=== PATIENT | male | born 1950 | race Caucasian/White ===

== ENCOUNTER 2017-12-30 09:55 | Inpatient (IN) ==
[~2017-12-30 09:55] MED LIST: Vancomycin 1,000 MG, Sodium Chloride IRRigation 1,000 ML IR ONE
[2017-12-30] MEDS ORDERED: Albuterol 2.5 MG/3 ML NEBULIZER IH ONE ×2 (10:24→16:43)
[2017-12-30] MEDS ORDERED: Lidocaine -MPF 1% 2 ML VIAL ID ONE (10:24)
[2017-12-30] MEDS ORDERED: CeFAZolin Syr 2,000MG/20 ML 2,000 MG/20 ML SYRINGE IVPB ONE (10:24)
[2017-12-30] MEDS ORDERED: 0.9 % Sodium Chloride 1,000 ML IVC SCH ×2 (10:30→17:27)
[2017-12-30] MEDS ORDERED: *HR* FentaNYL (PF) 100 MCG/2 ML VIAL ONE (10:50)
[2017-12-30] MEDS ORDERED: *HR* Propofol 200 MG/20 ML VIAL IVP ONE (10:50)
[2017-12-30] MEDS ORDERED: *HR* Midazolam HCl 2 MG/2 ML VIAL ONE (10:50)
[2017-12-30] MEDS ORDERED: Lidocaine -MPF 2% 2 ML VIAL ONE ×2 (10:52→11:18)
[2017-12-30] MEDS ORDERED: *HR* Rocuronium Bromide 50 MG/5 ML VIAL ONE (10:52)
--- NOTE | 2017-12-30 11:11 | Anesthesia Evaluation PreOp ---
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 History: TIA, Other (has bilateral LE contractures) Other Medical History: Hepatic (Cirrhosis due to ETOH abuse, patient denies any of this), Renal (stage 3 CKD), GERD, Other (Neuromuscular) Anesthesia History: No Prior Anesthetic Complications, Past Anesthesia (right leg stent, T&A,) Alcohol Use: none Drug use: none Medications and Allergies 3 Allergy/AdvReac Type Severity Reaction Status Date / Time No Known Allergies Allergy Verified 12/30/17 10:20 - Meds/Allergy Pre-op Review Medications Reviewed: Yes Allergies Reviewed: Yes Beta Blockers on Current Med List: No Anesthesia Results - Labs Laboratory Tests 12/28/17 12/28/17 12/28/17 12:45 12:45 12:45 Hgb 10.4 L Hct 32.5 L Plt Count 273 PT 11.0 INR 1.0 APTT 32.1 Sodium 133 L Potassium 4.9 BUN 37 H Creatinine 1.54 H Anesthesia Exam Selected Entries 12/30/17 10:30 Temperature 98.5 F Pulse Rate 63 Respiratory Rate 18 Blood Pressure 99/55 O2 Sat by Pulse Oximetry 95 - HEENT Pupil (Motor): EOMI Mallampati: III Teeth: Missing, Poor dentition Oral Opening: Greater than 3 - PROOF MACHINE OPERATOR SUPERVISOR LOC: Oriented 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
[2017-12-30] MEDS ORDERED: *HR* Phenylephrine 10 MG/ML VIAL ONE (11:22)
[2017-12-30] MEDS ORDERED: Heparin 1,000 UNITS/500 mL 500 ML ONE ×2 (12:35→12:53)
[2017-12-30] MEDS ORDERED: Heparin 1,000 UNITS/500 mL 1,000 ML ONE (12:37)
[2017-12-30] MEDS ORDERED: *HR* Remifentanil 2 MG VIAL IVP ONE (12:44)
--- NOTE | 2017-12-30 12:56 | History & Physical Report ---
Date of Encounter: 12/30/17 Time of Encounter: 12:30 24 Hour HP Update - Instructions Instructions: If the History and Physical is less than 30 days old and was completed prior to A.M. admission and or procedure and has NOT been updated on calendar day of procedure please complete this update prior to performing procedure. - Update Patient reports changes in Medical Condition: No Changes in examination, assessment, or condition: No Changes in Medication: No Preop tests/diagnostics Reviewed: Yes Surgery Remains Indicated: Yes Consent for Planned Operative Procedure(s) Verified: Yes - Pre-Operative Checklist Preoperative Checklist Indicated: Yes Prophylactic Antibiotic Ordered: Yes (Vancomycin due to risk of MRSA) Home Medications Include Beta Sammie: Yes Beta Sammie Taken Today (Day of Surgery): Yes Beta Sammie Taken Yesterday (Day Prior to Surgery): Yes Is VTE Prophylaxis Indicated?: Yes
[2017-12-30] MEDS ORDERED: EPHEDrine 50 MG/ML VIAL ONE (14:36)
[2017-12-30] MEDS ORDERED: Dexamethasone 4 MG/ML VIAL ONE (14:41)
[2017-12-30] MEDS ORDERED: Ondansetron 4 MG/2 ML VIAL ONE (14:41)
[2017-12-30] MEDS ORDERED: *HR* Heparin 5,000 UNIT/ML VIAL ONE (15:32)
[2017-12-30] MEDS ORDERED: Neostigmine Methylsulfate 3 MG/3 ML SYRINGE ONE (15:55)
[2017-12-30] MEDS ORDERED: Naloxone 0.4 MG/ML INJ IVP PRN ×2 (16:43→17:27)
[2017-12-30] MEDS ORDERED: *HR* Labetalol 20 MG/4 ML SYRINGE IVP PRN ×2 (16:43→17:27)
[2017-12-30] MEDS ORDERED: *HR* Meperidine 25 MG/ML SYRINGE IVP PRN (16:43)
[2017-12-30] MEDS ORDERED: MORPHINE SUL Oral CONC 10 MG/0.5 ML ORAL.SYG SL PRN (16:43)
[2017-12-30] MEDS ORDERED: *HR* Promethazine 25 MG/ML VIAL IVP PRN (16:43)
[2017-12-30] MEDS ORDERED: Ondansetron 4 MG/2 ML VIAL IVP ONE (16:43)
[2017-12-30] MEDS ORDERED: *HR* OxyCODONE Immed Rel 5 MG TABLET PO PRN ×2 (16:43→17:27)
[2017-12-30] MEDS ORDERED: 0.9 % Sodium Chloride 500 ML IVC SCH (16:45)
--- NOTE | 2017-12-30 16:47 | Operative Note ---
Date of procedure: 12/30/17 Pre-op diagnosis: Peripheral vascular diease with ulceration Post-op diagnosis: same Procedure: 1. Right common and deep femoral artery endartectomy. 2. Left common and deep femoral artery endarterectomy. 3. Right common femoral to left common femoral artery bypass with 6mm ring reinforced PTFE graft. Complications: None Anesthesia: GETA Surgeon: Ananth Flores Was there an assistant at surgery present: No Estimated blood loss (cc): 100 Specimen: Bilateral femoral plaque Condition: stable Disposition: PACU Procedure in Detail: Indications: The patient is a 67 year old male with a history of peripheral vascular disease with ulceration. he was found to have significant femoral artery disease and a left iliac artery occlusion. Revascularization was recommended for symptomatic relief and to reduce his risk of limb loss. Procedure: The patient was identified in the preoperative area. The risks, benefits, and alternatives of the procedure were discussed. All questions were answered. The patient was taken to the operating room and placed in supine position on the operating room table. After the induction of general endotracheal anesthesia, he was cleaned and draped in normal sterile fashion. An oblique incision was made over the right groin sharply. Hemostasis was obtained with electrocautery. Through a process of blunt, sharp, and electrocautery dissection, the right femoral vessels were dissected circumferentially and surrounded with vessel loops. An oblique incision was then made over the left groin sharply. Hemostasis was obtained with electrocautery. Through a process of blunt, sharp, and electrocautery dissection, the left femoral vessels were dissected circumferentially and surrounded with vessel loops. A graft was tunneled between the right and left femoral incisions. The patient received 5000 units of heparin intravenously. An arteriotomy was then made in the right common femoral artery. A large, partially occlusive plaque was noted to be present in the common femoral artery and extending into the deep femoral artery. Release of the distal vessel loop revealed minimal retrograde flow from the profunda femoris artery. Using a dental freer a right common and deep femoral endarterectomy was performed. Endpoints were inspected and no elevated flaps were noted. The deep femoral artery was noted to have significant retrograde flow after the endarterectomy. The graft was then cut to fit the arterial defect. The graft was sutured in place to the artery with a running 6-0 Prolene. The vessels were flushed through the graft. Heparinized saline was infused into the graft lumen. The graft was clamped with an atraumatic clamp. Flow was restored in the right femoral vessels. Tension was applied to the left femoral artery vessel loops. An arteriotomy was made in the left common femoral artery and the vessel was noted to be occluded with thrombus and significant atherosclerotic plaque extending from the common and into the dep femoral artery. Using a dental freer a left common and deep femoral localized thrombectomy and endarterectomy were performed. Endpoints were inspected and no elevated flaps were noted. The deep femoral artery was noted to have significant retrograde flow after the endarterectomy. The distal end of the graft was cut to fit the arterial defect. The graft was anastamosed with a running 6-0 Prolene. Prior to completing the anastamosis, the left femoral vessels were flushed through the graft anastamosis and heparin was infused into the lumen. The anastamosis was completed and flow was restored in the left lower extremity. Thrombin and gelfoam were used at the proximal anastamosis. Release of the deep femoral vessel loop revealed no retrograde flow from the profunda femoris artery. Polyphasic signals were noted distal to the anastamoses. The wounds were irrigated with antibiotic-containing saline. Platelet rich and platelet poor plasma were infused into the wounds. Meticulous hemostasis was obtained throughout the wound with electrocautery. Wounds were reapproximated with layers of 2-0 and 3-0 Vicryl. Skin was reapproximated with 3-0 Monocryl. Sterile dressing was applied. The patient was extubated and taken to recovery room in stable condition.
--- NOTE | 2017-12-30 17:23 | Anesthesia Evaluation Post Op ---
Date of Encounter: 12/30/17 Time of Encounter: 17:23 - Vital Signs Vital Signs: Last Vital Signs Temp 98.3 F 12/30/17 17:00 Pulse 94 12/30/17 17:10 Resp 14 12/30/17 17:10 BP 122/69 12/30/17 17:10 Pulse Ox 98 12/30/17 17:10 - Lungs Lungs: Clear Ascult./Percussion - Airway Airway: Non-obstructed - Cardiovascular Regular Rate - Mental Status Mental Status: Alert & Oriented, Answers Appropriately - Pain Pain Scale: 4 - Nausea Vomiting Nausea Vomiting: Responds to treatment with IV Meds - Hydration Hydration: NPO - Discharge PostOp Status: Transfer Patient to floor
[2017-12-30] MEDS ORDERED: Ondansetron 4 MG/2 ML VIAL IVP PRN (17:27)
[2017-12-30] MEDS ORDERED: Acetaminophen 325 MG TABLET PO PRN (17:27)
[2017-12-30] MEDS ORDERED: Maalox Oral Soln 30 mL PO PRN (17:27)
[2017-12-30] MEDS ORDERED: *HR* HYDROcodone/Acet 5/325 mg TABLET PO PRN (17:27)
[2017-12-30] MEDS ORDERED: OXYCODONE Oral CONC 10 MG/0.5 ML ORAL.SYG SL PRN ×2 (17:27)
[2017-12-30] MEDS: *HR* Metoprolol 5 MG/5 ML VIAL IVP SCH ×2 (19:22→23:07)
[2017-12-30] MEDS: Budesonide/Formoterol 80/4.5 MDI IH SCH (19:55)
[2017-12-30] MEDS: Lactulose Oral Soln 20 GM/30 ML UDC PO SCH (20:11)
[2017-12-30] MEDS: Lactobacillus 1 EACH CAP.SPRINK PO SCH (20:11)
[2017-12-30] MEDS: Furosemide 20 MG TABLET PO SCH (20:11)
[2017-12-30] MEDS: Nystatin POWDER 30 GM BOTTLE TP SCH (20:12)
[2017-12-30] MEDS: CeFAZolin Premix DUPLEX 2,000 MG/50 ML BAG IVPB SCH (20:12)
[2017-12-30] MEDS ORDERED: Mirtazapine 15 MG TABLET PO SCH (21:00)
[2017-12-31 04:09] LABS: Basophils % 0.2 %; Eosinophils % 0.2 %; Hematocrit 28.2 % (37.5-50.1); Immature Granulocytes % 0.5 % (0-4); Lymphocytes # 0.6 K/mcL (0.6-4.6); Lymphocytes % 8.5 %; Mean Corpuscular HGB Conc 31.9 g/dL (31.6-35.5); Mean Corpuscular Hemoglobin 29.6 pg (28.0-33.3); Mean Corpuscular Volume 92.8 fL (83.0-100.0); Mean Platelet Volume 9.8 fL (9.4-12.4); Monocytes # 0.3 K/mcL (0.0-1.3); Neutrophils # 5.5 K/mcL (1.6-8.9); Nucleated Red Blood Cells 0.3 /100 WBC (0); Platelet Count 270 K/mcL (140-400); Red Blood Count 3.04 M/mcL (4.19-5.50); Red Cell Distribution Width 13.1 % (11.5-14.5); Segmented Neutrophils % 85.6 %
[2017-12-31 04:16] LABS: Potassium 5.9 mEq/L (3.5-5.1)
[2017-12-31] MEDS: CeFAZolin Premix DUPLEX 2,000 MG/50 ML BAG IVPB SCH (04:28)
[2017-12-31] MEDS ORDERED: *HR* Heparin 5,000 UNIT/ML VIAL SQ SCH ×2 (06:00)
[2017-12-31] MEDS: *HR* Metoprolol 5 MG/5 ML VIAL IVP SCH (06:28)
--- NOTE | 2017-12-31 07:40 | Discharge Summary ---
Orders not resulted at time of discharge: Pending orders 12/28/17 13:17 Red Blood Cells [BBK] Routine 12/30/17 16:35 Surgical Pathology [PTH] Routine Date of Encounter: 12/31/17 Time of Encounter: 07:55 - Discharge Diagnosis (1) Atherosclerosis of [place] arteries of left leg with ulceration of other part of foot Priority: Primary Status: Chronic Comments: The patient is postoperative day #1 after a femoral to femoral artery bypass. His incisions are healing well. His foot is warm and his compartments are soft. He has pedal signals present. He will be discharged today. (2) Essential hypertension Priority: Secondary Status: Chronic (3) Alcoholic cirrhosis of liver without ascites Priority: Secondary Status: Chronic (4) Chronic kidney disease, stage 3 Priority: Secondary Status: Chronic Comments: Stable GFR with adequate urine output. (5) Tobacco abuse Priority: Secondary Status: Chronic (6) Chronic disease anemia Priority: Secondary Status: Chronic Comments: The patient has chronic disease anemia with acute expected postoperative blood loss anemia. He is hemodynamically stable without evidence of ongoing blood loss. - Hospital Course Hospital course: Mr. Herrera is a 67 year old male who was admitted on 12/30/17. He underwent a femoral endarterectomy and a FEM-FEM bypass. He tolerated the procedure well and was discharged to home on postoperative day #1 without complications. Time spent discussing smoking cessation with patient: 3 to 10 minutes - Time Spent with Patient Total time spent providing and/or coordinating discharge services: - Discharge Medications Home Medications: Ascorbic Acid [Vitamin C] 500 mg PO DAILY 12/30/17 [History] Aspirin [Lo-Dose Aspirin EC] 81 mg PO DAILY 12/30/17 [History] Ferrous Sulfate [Iron] 325 mg PO BID 12/30/17 [History] Fluticasone/Salmeterol [Advair 250-50 Diskus] 1 tab IH BID 12/30/17 [History] Furosemide [Lasix] 20 mg PO BID 12/30/17 [History] HYDROcodone/Acet 5/325 mg [[place] 5-325 mg] 1 tab PO Q4H PRN 12/30/17 [History] L.acidoph,Paracasei, B.lactis [Probiotic] 1 cap PO BID 12/30/17 [History] Lactulose 10 gm PO BID 12/30/17 [History] Lisinopril [Zestril] 10 mg PO DAILY 12/30/17 [History] Mag Hydrox/Al Hydrox/Simeth [Maalox] 30 ml PO Q6HR PRN 12/30/17 [History] Metoprolol [Lopressor] 12.5 mg PO BID 12/30/17 [History] Mirtazapine [Remeron] 15 mg PO HS 12/30/17 [History] Nystatin POWDER [Nystop] 1 appl TP BID 12/30/17 [History] Omeprazole [PriLOSEC] 20 mg PO DAILY 12/30/17 [History] Ondansetron HCl [Zofran] 4 mg PO Q6H PRN 12/30/17 [History] Potassium Chloride [K-Tab ER] 20 meq PO BID 12/30/17 [History] Sulfamethoxazole/Trimeth DS [Bactrim Ds] 1 each PO BID 12/30/17 [History] Zinc Sulfate 50 mg PO DAILY 12/30/17 [History] Allergies/Adverse Reactions: 3 Allergy/AdvReac Type Severity Reaction Status Date / Time No Known Allergies Allergy Verified 12/30/17 12:12 Date of admission: 12/30/17 17:27 Primary care physician: Frank Cadena, DO Consults: 12/30/17 17:27 Consult to Physical Therapy [CONS] Routine Comment: Evaluate, develop and implement POC Reason for Consult: PVD with ulceration. s/p FEM-FEM, contractures of bilateral knees. OT [Consult to Occupational Therapy] [CONS] Routine Comment: Evaluate, develop and implement POC Reason for Consult: PVD with ulceration. s/p FEM-FEM, contractures of bilateral knees. 12/30/17 18:28 Consult to Nutrition [CONS] Routine Comment: Consulting Provider: NUTRITION Reason for Dietary Consult: PO Supplementation Procedure(s) Performed: Femoral endarterectomy and femoral to femoral artery bypass. Discharging clinician: Ananth Flores Anticipated date of discharge: 12/31/17 Exam Vital Signs, Last 4 Hours Temp Pulse Resp BP Pulse Ox 12/31/17 07:29 99.1 F 78 15 115/74 97 12/31/17 04:12 98.7 F 73 19 121/63 97 General: Present: Conversant, No Apparent Distress Neck: Absent: JVD Cardiac: Present: Reg Rate and Rhythm Lungs: Present: Normal Breath Sounds Neuro: Present: Alert and responsive Abdomen: Present: Soft Vascular: Present: Normal capillary refill, Pulse, normal (pedal signals present ), Edema, Surgical incisions (no hematoma, no erythema, no drainage). Absent: Cyanosis Skin: Present: No rashes noted on visualized skin - Patient Status Disposition: Transfer Inpatient Rehab Fac Condition: Good Functional capacity at discharge: wheelchair bound Overall status at discharge: patient is back to baseline - Discharge Instructions Instructions: Femoropopliteal Bypass (DC) Follow Up With: Ananth Flores MD [Partnered Physician] - 02/08/18 1:20 pm Frank Cadena DO [Primary Care Provider] - ([facility] no PCP appointment Needed) - Diet and Activity Activity: as per physical therapy, increase activity as tolerated Diet: advance to your usual diet - VTE Documentation of Mechanical Device: Intermittent pneumatic compression device
[2017-12-31] MEDS: Budesonide/Formoterol 80/4.5 MDI IH SCH (07:50)
[2017-12-31] MEDS ORDERED: Aspirin Enteric Coated 81 MG Tablet PO SCH (09:00)
[2017-12-31] MEDS ORDERED: ZINC SULFATE 50 MG PO SCH (09:00)
[2017-12-31] MEDS ORDERED: Ascorbic Acid 500 MG TABLET PO SCH (09:00)
[2017-12-31] MEDS ORDERED: Furosemide 20 MG/2 ML VIAL IVP ONE ×2 (09:04→14:25)
[2017-12-31] MEDS: Lactulose Oral Soln 20 GM/30 ML UDC PO SCH (09:13)
[2017-12-31] MEDS: Lactobacillus 1 EACH CAP.SPRINK PO SCH (09:13)
[2017-12-31] MEDS: Furosemide 20 MG TABLET PO SCH (09:15)
[2017-12-31] MEDS: Nystatin POWDER 30 GM BOTTLE TP SCH (09:34)
[2017-12-31] MEDS ORDERED: 0.9 % Sodium Chloride 500 ML IVC ONE (14:32)
[2017-12-31] MEDS ORDERED: 0.9 % Sodium Chloride 500 ML ONE (14:35)
[2017-12-31 15:20] VITALS: BP 127/61
--- NOTE | 2017-12-31 15:57 | Physician Discharge Referral ---
ExtendedCare Referral Info Transfer To: ECF Provider in Charge after Transfer: PCP Institutional Level of Care: Skilled - Diagnosis (1) Atherosclerosis of [place] arteries of left leg with ulceration of other part of foot Priority: Primary Status: Chronic (2) Essential hypertension Priority: Secondary Status: Acute (3) Alcoholic cirrhosis of liver without ascites Priority: Secondary Status: Chronic (4) Tobacco abuse Priority: Secondary Status: Chronic (5) Chronic kidney disease, stage 3 Priority: Secondary Status: Chronic Prognosis: Fair Aware of Diagnosis: Patient Aware of Prognosis: Patient - Transfer Medications Home Medications: Ascorbic Acid [Vitamin C] 500 mg PO DAILY 12/30/17 [History] Aspirin [Lo-Dose Aspirin EC] 81 mg PO DAILY 12/30/17 [History] Ferrous Sulfate [Iron] 325 mg PO BID 12/30/17 [History] Fluticasone/Salmeterol [Advair 250-50 Diskus] 1 tab IH BID 12/30/17 [History] Furosemide [Lasix] 20 mg PO BID 12/30/17 [History] HYDROcodone/Acet 5/325 mg [[place] 5-325 mg] 1 tab PO Q4H PRN 12/30/17 [History] L.acidoph,Paracasei, B.lactis [Probiotic] 1 cap PO BID 12/30/17 [History] Lactulose 10 gm PO BID 12/30/17 [History] Lisinopril [Zestril] 10 mg PO DAILY 12/30/17 [History] Mag Hydrox/Al Hydrox/Simeth [Maalox] 30 ml PO Q6HR PRN 12/30/17 [History] Metoprolol [Lopressor] 12.5 mg PO BID 12/30/17 [History] Mirtazapine [Remeron] 15 mg PO HS 12/30/17 [History] Nystatin POWDER [Nystop] 1 appl TP BID 12/30/17 [History] Omeprazole [PriLOSEC] 20 mg PO DAILY 12/30/17 [History] Ondansetron HCl [Zofran] 4 mg PO Q6H PRN 12/30/17 [History] Potassium Chloride [K-Tab ER] 20 meq PO BID 12/30/17 [History] Sulfamethoxazole/Trimeth DS [Bactrim Ds] 1 each PO BID 12/30/17 [History] Zinc Sulfate 50 mg PO DAILY 12/30/17 [History] Allergies/Adverse Reactions: 3 Allergy/AdvReac Type Severity Reaction Status Date / Time No Known Allergies Allergy Verified 12/30/17 12:12 - Respiratory Orders Smoking Cessation: Smoking cessation has been advised. For more information, call the [place] Tobacco Quit Line at 1-548-JKOR-NOW. - Advance Directives Living Will: No Power of Booster Assembler: No Code Status: Full Code - Mobility Orders Chair - Rehabiliation Orders Rehab Potential: Fair Rehab Orders: ROM Exercises, Evaluation for Physical Therapy, Evaluation for Occupational Therapy - Treatments Skin tear care topically daily PRN per policy, May check for fecal impaction rectally daily PRN, Fleet enema rectally every other day PRN cleansing purposes - Diet Orders Regular CERTIFICATION: I certify that the transfer of the above named patient to an Extended Care Facility is necessary for the continuing treatment of the diagnosis listed. The above information is true and accurate reflection of patient's current condition. Confidential - Redisclosure prohibited without a patient's written consent.
[2018-01-01] MEDS ORDERED: Furosemide 20 MG/2 ML VIAL IVP ONE (13:40)
== END 2017-12-31 17:05 | DRG 254 ==
LOC: SAMDAY 09:55 → 2NNU 17:27
PROVIDERS: ADMIT Surgery; ATTEND Surgery
PROC: VASFFBG (ICD-10-PCS; 2017-12-30 11:40)